=== PATIENT | female | born 1975 | race Caucasian/White ===

== ENCOUNTER 2017-03-06 16:00 | Observation (INO) | payer OTHER ==
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
== END 2017-03-06 19:35 | disposition home or self-care (01) ==
LOC: FLD 16:00
PROVIDERS: ADMIT Obstetrics & Gynecology; ATTEND Obstetrics & Gynecology
DX: O36.8130 Decreased fetal movements, third trimester, not applicable or unspecified (principal); O09.523 Supervision of elderly multigravida, third trimester; O09.213 Supervision of pregnancy with history of pre-term labor, third trimester; K90.0 Celiac disease; Z3A.39 39 weeks gestation of pregnancy
CPT/HCPCS: 59025; 76815; G0378

== ENCOUNTER 2017-03-08 05:39 | Inpatient (IN) | payer OTHER ==
--- NOTE | 2017-03-08 06:55 | OBPROG ---
OBG Progress Note Assessment/Plan: Assessment: cat 1 fhr contractions regular q3-4 minutes to tub to assist with the pain /-2 Plan:expectant management of labor 03/08/17 06:53 Subjective: Coping fair. feeling pain with each contractions. Feeling PAin in her back - SVE Dilation (cm): 4 Current Contraction Pattern: Regular FHR (bpm): 145 FHR Pattern Variability: Moderate FHR Category: 1 Membranes: Intact - Physical Exam General Appearance: WD/WN, alert, no apparent distress Respiratory: chest non-tender, lungs clear, normal breath sounds Cardiac/Chest: regular rate, rhythm Abdomen: normal bowel sounds Membranes: Intact Extremities: Eva's sign (negative bilaterally) DTR- Lower Extremities: Knee (R): 1+, Knee (L): 1+ (no clonus bilaterally) Skin: normal color, warm/dry Neuro/Psych: no motor/sensory deficits, alert, normal mood/affect, oriented x 3 ICD10 Worksheet Patient Problems: Problems Problem Status Onset Decreased movement Acute
[2017-03-08] MEDS ORDERED: TERBUTALINE SULFATE 1 MG/ML VIAL IV PRN (07:02)
[2017-03-08] MEDS ORDERED: LR 1,000 ML IV PRN (07:02)
[2017-03-08] MEDS ORDERED: IBUPROFEN 600 MG TAB PO PRN (07:02)
[2017-03-08] MEDS ORDERED: LIDOCAINE 1% 30 ML SDV SC PRN (07:02)
[2017-03-08] MEDS ORDERED: OLIVE OIL 118 ML BTL MISC PRN (07:02)
[2017-03-08] MEDS ORDERED: EPSOM SALT 454 GM TP PRN (07:02)
[2017-03-08] MEDS ORDERED: OXYTOCIN/RINGERS LACTATE 1,000 ML IV PRN (07:02)
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
[2017-03-08 07:54] LABS: % IMMATURE GRANULYOCYTES 0.5 % (0.0-1.1); ABSOLUTE IMMATURE GRANULOCYTES 0.06 10^3/uL (0.00-0.10); ADD DIFF? NO; ADD MORPH? NO; ADD SCAN? NO; ATYPICAL LYMPHOCYTE FLAG 10 (0-99); FRAGMENT RBC FLAG 0 (0-99); HEMATOCRIT 37.2 % (38.0-47.0); HEMOGLOBIN 13.1 g/dL (12.6-16.3); LEFT SHIFT FLG 0 (0-99); LIPEMIA HEMOLYSIS FLAG 90 (0-99); MEAN CELL HEMOGLOBIN 32.6 pg (27.9-34.1); MEAN CELL HEMOGLOBIN CONCENTR. 35.2 g/dL (32.4-36.7); MEAN CELL VOLUME 92.5 fL (81.5-99.8); PLATELET CLUMPS FLAG 20 (0-99); PLATELET COUNT 122 10^3/uL (150-400); RED BLOOD CELL COUNT 4.02 10^6/uL (4.18-5.33); RED CELL DISTRIBUTION WIDTH 12.3 % (11.5-15.2)
[2017-03-08] MEDS ORDERED: BUPIVACAINE 0.25% 30 ML SDV ONE (08:59)
[2017-03-08] MEDS ORDERED: fentaNYL 2MCG/ML/BUP 0.1% RTU 100 ML BAG EP ONE (08:59)
[2017-03-08] MEDS ORDERED: PHENYLEPHRINE HCL 100 MCG/ML SYR ONE (08:59)
[2017-03-08] MEDS ORDERED: fentaNYL 100 MCG/2 ML INJ ONE (09:00)
--- NOTE | 2017-03-08 09:15 | OBPROG ---
OBG Progress Note Assessment/Plan: Assessment: 41 y/o @ 39 5/7 wks in active labor Plan: Attempt an epidural - anesthesiology notified FHTs - Cat I tracing SROM- clear, blood tinged Anticipate 03/08/17 09:12 Subjective: Pt is on toilet and noticed leakage of fluid, pain with ctx's. Requesting an epidural at this time. Objective: 03/08/17 07:30 Patient ABO/Rh B POSITIVE 03/08/17 07:30 - SVE Dilation (cm): 9 Effacement (%): 100 Station: 0 Current Contraction Pattern: Regular FHR (bpm): 130 FHR Pattern Variability: Moderate FHR Category: 1 Membranes: SROM Amniotic Fluid Color: Clear, Blood Tinged ICD10 Worksheet Patient Problems: Problems Problem Status Onset Active labor at term Acute
--- NOTE | 2017-03-08 10:19 | OBPROG ---
OBG Progress Note Assessment/Plan: Assessment: 41 y/o @ 39 5/7 wks in active labor Plan: s/p epidural FHTs - Cat I tracing AROM forebag and thin mec Will start pushing 03/08/17 10:18 Subjective: Pt is comfortable, s/p epidural. Objective: 03/08/17 07:30 Patient ABO/Rh B POSITIVE 03/08/17 07:30 - SVE Dilation (cm): 10 Effacement (%): 100 Station: +1 Current Contraction Pattern: Regular FHR (bpm): 130 FHR Pattern Variability: Moderate FHR Category: 1 Membranes: AROM Amniotic Fluid Color: Bloody, Meconium Stained-Light ICD10 Worksheet Patient Problems: Problems Problem Status Onset Active labor at term Acute
[2017-03-08 11:05] LABS: BASE EXCESS CORD -7.9 mEq/L (-13.6--3.2); CORD BLOOD PCO2 65.4 mmHg (37-60); PH ARTERIAL CORD BLOOD 7.16 (7.10-7.37)
[2017-03-08 11:09] LABS: PH VENOUS CORD BLOOD 7.24 (7.20-7.42)
[2017-03-08] MEDS ORDERED: HYDROCORTISONE 0.5% CREAM TP PRN (11:13)
[2017-03-08] MEDS ORDERED: SIMETHICONE 80 MG TAB CHEW PO PRN (11:13)
--- NOTE | 2017-03-08 11:16 | OBPROC ---
- Labor and Delivery Onset of Contractions Date: 03/08/17 Onset of Contractions Time: 05:00 Onset of Contractions Type: Spontaneous Rupture of Membranes Date: 03/08/17 Rupture of Membranes Time: 09:00 Rupture of Membranes Type: Spontaneous (AROM of forebag) Amniotic Fluid Color: Meconium Stained-Light Placenta Delivery Date: 03/08/17 Placenta Delivery Time: 10:55 Episiotomy/Laceration: 2nd Degree Repair: 3-0, Vicryl EBL: 300 cc Complications: Nuchal Cord (Tight-slipped over shoulders and delivered through) Cord Gases: Cord Gases Cord Blood PCO2 65.4 mmHg (37-60) H 03/08/17 10:50 Cord Base Excess -7.9 mEq/L (-13.6--3.2) 03/08/17 10:50 Cord ABG pH 7.16 (7.10-7.37) 03/08/17 10:50 Cord VBG pH 7.24 (7.20-7.42) 03/08/17 10:50 - Medications Labor Augmentation/Induction Meds Used: None Anesthesia: Epidural - [place] Info Infant A Delivery Date: 03/08/17 Delivery Time: 10:50 Sex of Infant: Male ("Luke") Score (1 Min): 2 Score (5 Min): 5 Score (10 Min): 9
[2017-03-08] MEDS ORDERED: PHENYLEPHRINE HCL 100 MCG/ML SYR IVP PRN (11:21)
[2017-03-08] MEDS ORDERED: ONDANSETRON 4 MG/2 ML VIAL IVP PRN (11:21)
--- NOTE | 2017-03-08 11:23 | POSTANESTH ---
Post Anesthetic Evaluation Cardiovascular Status: Normal, Stable Respiratory Status: Normal, Stable, Similar to Pre-op Cond. Level of Consciousness/Mental Status: Can Participate in Eval, Alert and Oriented (Tolerated CSE well, stable, comfortable.) Pain Control: Adequate, Prn Tx Ordered Nausea/Vomiting Control: Adequate, Prn Tx Ordered Complications Possibly Related to Anesthesia: None Noted
--- NOTE | 2017-03-08 11:27 | PREANESOB ---
Obstetric Pre-Anesthesia Info - General Info Proposed Procedure: Labor and delivery : 2 Para: 1 WBD: 39 - Info Status: Full Term Monitors: External FHR Baseline (bpm): 140 FHR Pattern: Reassuring - Labor Status Cervical Dilation per last OB SVE: 9 Station per last OB SVE: +1 Rupture of Membranes Time: 09:00 Amniotic Fluid Color: Bloody, Meconium Stained-Light Indications for Labor Analgesia: Pain Control Labor Epidural: Proposed Anesthesia ROS: Celiac disease. S/P ankle and finger surgery. Allergies/Adverse Reactions: Allergy/AdvReac Type Severity Reaction Status Date / Time venom-honey bee Allergy Severe FACE Verified 11/14/12 13:25 SWELLING strawberry Allergy Mild RASH WHEN Verified 11/14/12 13:25 OVER EATS THEM Home Medications: Medication Instructions Recorded No Medications [NO HOME 0 ea [facility] [place] MEDICATIONS] 1 tab PO DAILY 03/08/17 Visit Medications: Generic Name Dose Route Start Last Admin Trade Name Freq PRN Reason Stop Dose Admin Hydrocodone Bitart/Acetaminophen 1 - 2 tab 03/08/17 11:13 [place] 5/325 PO 03/18/17 11:12 Q4HRS PRN Pain, Moderate Diphenhydramine HCl 25 - 50 mg 03/08/17 11:21 Benadryl Injection IVP 09/04/17 11:20 Q6HRS PRN Itching Docusate Sodium 100 mg 03/08/17 11:13 Colace PO 09/04/17 11:12 BID PRN Constipation Hydrocortisone 1 talya 03/08/17 11:13 Hydrocortisone 0.5% TP 09/04/17 11:12 QID PRN Hemorrhoids Lactated Ringer's 1,000 mls @ 0 mls/hr 03/08/17 07:02 Lr IV 09/04/17 07:01 PRN PRN SEE PROTOCOL CONDITIONS Protocol Per Protocol Oxytocin/Lactated Ringer's 1,000 mls @ 150 mls/hr 03/08/17 07:02 Pitocin 20 Units/Lr (Premix) IV PRN PRN Post- bleeding Fentanyl/Bupivacaine HCl 100 mls @ 0 mls/hr 03/08/17 11:30 Fentanyl/Bupivacaine/Ns 2 Mcg/Ml 0.1% (Premix EP 03/18/17 11:29 CONT MAGGIE Protocol As Directed Lactated Ringer's 500 mls @ 0 mls/hr 03/08/17 11:30 Lr IV 09/04/17 11:29 CONT MAGGIE As Directed Ibuprofen 600 mg 03/08/17 07:02 Motrin PO 09/04/17 07:01 Q6HRS PRN post , inflammation Ibuprofen 600 mg 03/08/17 11:13 Motrin PO 09/04/17 11:12 Q6HRS PRN Pain, Inflammatory Lidocaine HCl 30 ml 03/08/17 07:02 Lidocaine Hcl 1% SC 09/04/17 07:01 ONCE PRN Episiotomy Magnesium Sulfate 454 gm 03/08/17 07:02 Epsom Salt TP 09/04/17 07:01 PRN PRN perineal discomfort [place] Oil 118 ml 03/08/17 07:02 Sweet Oil MISC 09/04/17 07:01 ONCE PRN preneal massage Ondansetron HCl 4 mg 03/08/17 11:21 Zofran IVP 09/04/17 11:20 Q4HRS PRN Nausea/Vomiting, Can't Take PO Phenylephrine HCl 100 mcg 03/08/17 11:21 Kulwant-Synephrine IVP 09/04/17 11:20 .Q2M PRN Hypotension Simethicone 80 mg 03/08/17 11:13 Mylicon PO 09/04/17 11:12 ACHS PRN Gas Terbutaline Sulfate 0.25 mg 03/08/17 07:02 Brethine IV 09/04/17 07:01 ONCE PRN Tachysystole Discontinued Medications Generic Name Dose Route Start Last Admin Trade Name Deionq PRN Reason Stop Dose Admin Bupivacaine HCl Confirm 03/08/17 08:59 Sensorcaine 0.25% Sdv Administered 03/08/17 09:00 Dose 30 ml .ROUTE .STK-MED ONE Fentanyl Confirm 03/08/17 09:00 Sublimaze Administered 03/08/17 09:01 Dose 100 mcg .ROUTE .STK-MED ONE Fentanyl/Bupivacaine HCl Confirm 03/08/17 08:59 Fentanyl/Bupivacaine/Ns 2 Mcg/Ml 0.1% (Premix Administered 03/08/17 09:00 Dose 100 ml EP .STK-MED ONE Phenylephrine HCl Confirm 03/08/17 08:59 Kulwant-Synephrine Administered 03/08/17 09:00 Dose 1,000 mcg .ROUTE .STK-MED ONE - Anesthesia History Response to Local Anesthetics: Normal Anesthesia & Operative History: No Prior Problems - Social History Substance Use/Abuse: Denies - Focused Exam Blood Pressure: 117/74 Heart Rate: 87 Respiratory Rate: 18 Height/Weight (Nursing): Height 162.56 cm Weight 77.111 kg Physical Exam: Within normal limits. ASA Status: II Labs: 03/08/17 07:30 Patient ABO/Rh B POSITIVE 03/08/17 07:30 - Plan Anesthetic Plan: CSE Consent Signed and on Chart: Yes Patient/Guardian Understands and Agrees to Plan: Yes General Comments: Written consent signed after epidural due to patient discomfort.
[2017-03-08] MEDS ORDERED: LR 500 ML IV SCH (11:30)
[2017-03-08] MEDS ORDERED: fentaNYL 2MCG/ML/BUP 0.1% RTU 100 ML EP SCH (11:30)
[2017-03-08] MEDS: IBUPROFEN 600 MG TAB PO PRN ×2 (12:20→18:58)
[2017-03-08] MEDS: HYDROCODONE/APAP 5/325 TAB PO PRN ×2 (16:09→23:21)
[2017-03-08 18:51] VITALS: RESP 16
[2017-03-08] MEDS: DOCUSATE SODIUM 100 MG CAP PO PRN (22:09)
[2017-03-09] MEDS: IBUPROFEN 600 MG TAB PO PRN ×4 (00:58→22:07)
[2017-03-09] MEDS: HYDROCODONE/APAP 5/325 TAB PO PRN ×5 (03:52→23:53)
--- NOTE | 2017-03-09 11:05 | OBPROG ---
OBG Progress Note Assessment/Plan: Assessment: 41 y/o PPD #1 s/p doing well. Plan: Routine PPC, support. Epsom salt baths etc and D/c home tomorrow. 03/09/17 11:02 Subjective: Pt is doing well. She is having significant cramping taking Ibuprofen and Dovray occasionally. She is ambulating and voiding well and has min lochia. Breast feeding is going well and baby is doing well. Objective: 03/08/17 07:30 Patient ABO/Rh B POSITIVE 03/08/17 07:30 Temp Pulse Resp BP Pulse Ox 36.6 C 58 L 16 102/74 93 03/08/17 20:00 03/08/17 20:00 03/08/17 20:00 03/08/17 20:00 03/08/17 20:00 Uterine Position/Fundal Height: Umbilicus -2 Uterine Tone: Firm - Physical Exam General Appearance: WD/WN, alert, no apparent distress Neck: non-tender, full range of motion, supple Respiratory: chest non-tender, lungs clear, normal breath sounds Cardiac/Chest: regular rate, rhythm Abdomen: normal bowel sounds Extremities: swelling (no), Eva's sign (neg) ICD10 Worksheet Patient Problems: Problems Problem Status Onset Active labor at term Acute
[2017-03-09] MEDS: DOCUSATE SODIUM 100 MG CAP PO PRN ×2 (13:29→19:44)
[2017-03-09 20:00] VITALS: O2SAT 96
[2017-03-10] MEDS: DOCUSATE SODIUM 100 MG CAP PO PRN (09:37)
[2017-03-10] MEDS: IBUPROFEN 600 MG TAB PO PRN (09:37)
[2017-03-10 10:47] VITALS: PULSE 52; TEMP 98.2
[2017-03-10 11:01] VITALS: BP 97/59
--- NOTE | 2017-03-10 11:16 | SOAPPROG ---
SOAP Progress Note Assessment/Plan: Assessment: PPD 2 s/p Plan: D/C home 03/10/17 11:14 Subjective: Pt doing well and desires D/C. Bld has decreased. urinating fine. Baby is latching well. Mod cramps - ok with ibu. Objective: Vital Signs Temp Pulse Resp BP Pulse Ox 36.8 C 52 L 16 97/59 L 96 03/10/17 08:00 03/10/17 08:00 03/10/17 08:00 03/10/17 10:15 03/10/17 08:00 Laboratory Results 03/08/17 07:30 03/09/17 03/10/17 03/11/17 05:59 05:59 05:59 Output Total 300 Balance -300 Physical Exam - Physical Exam General Appearance: WD/WN Abdomen: non-tender, soft, other (FF at umb -1) Pelvic Exam: vaginal bleeding (normal lochia) Extremities: non-tender, pedal edema (minimal) Neuro/Psych: normal mood/affect ICD10 Worksheet Patient Problems: Problems Problem Status Onset (spontaneous vaginal delivery) Acute
== END 2017-03-10 13:30 | disposition home or self-care (01) | DRG 775 ==
LOC: FLD 05:39 → FOB 19:00
PROVIDERS: ADMIT Advanced Practice Midwife; ATTEND Advanced Practice Midwife
DX: O69.2XX0 Labor and delivery complicated by other cord entanglement, with compression, not applicable or unspecified (principal); Z37.0 Single live birth; O70.1 Second degree perineal laceration during delivery; Z3A.39 39 weeks gestation of pregnancy
CPT/HCPCS: J2370; J2590; J3010

== ENCOUNTER 2017-08-29 00:53 | Emergency (ER) | payer OTHER ==
[2017-08-29 01:02] VITALS: O2SAT 95
[2017-08-29] MEDS ORDERED: NS 1,000 ML IV ONE ×2 (01:19→02:27)
--- NOTE | 2017-08-29 01:24 | EDPHY ---
H & P Stated Complaint: Poss Allergic Reaction Time Seen by Provider: 08/29/17 01:08 HPI/ROS: CHIEF COMPLAINT: Possible allergic reaction HISTORY OF PRESENT ILLNESS: Patient is a 41-year-old female who comes to the emergency department complaining of itching in her legs. She states that she woke up because her baby was crying and felt like the left side of her body was warm. She went to the bathroom and had diarrhea which is likely from taking a dose of MiraLax before going to bed. She was testing this because it was prescribed for her daughter. She does have a history of celiac disease. No blood in her stool. No nausea vomiting. She states that the warmness on the left side of her body resolved but she then developed pain in both wrists and thought that her hands were swollen and she she decided to remove her rings. She called her friend who came over and brought her to the emergency department. Friend states that she did not have any slurred speech or droopy face. The patient denies any weakness. She has been ambulatory. She states that no all the other symptoms have resolved but she has itching in both legs. No visible rash. No shortness of breath. No headache. No fever or recent illness. She does have a history of anxiety but denies panic attacks. REVIEW OF SYSTEMS: Constitutional: denies: chills, fever, recent illness, recent injury EENTM: denies: blurred vision, double vision, nose congestion Respiratory: denies: cough, shortness of breath Cardiac: denies: chest pain, irregular heart rate, lightheadedness, palpitations Gastrointestinal/Abdominal: denies: abdominal pain, diarrhea, nausea, vomiting, blood streaked stools Genitourinary: denies: dysuria, frequency, hematuria, pain Musculoskeletal: denies: joint pain, muscle pain Skin: denies: lesions, rash, jaundice, bruising Neurological: See HPI denies: headache, dizziness, weakness Hematologic/Lymphatic: denies: blood clots, easy bleeding, easy bruising Immunologic/allergic: denies: HIV/AIDS, transplant EXAM: GENERAL: Well-appearing, well-nourished and in no acute distress. HEAD: Atraumatic, normocephalic. EYES: Pupils equal round and reactive to light, extraocular movements intact, sclera anicteric, conjunctiva are normal. ENT: TMs normal, nares patent, oropharynx clear without exudates. Moist mucous membranes. NECK: Normal range of motion, supple without lymphadenopathy or JVD. LUNGS: Breath sounds clear to auscultation bilaterally and equal. No wheezes rales or rhonchi. HEART: Regular rate and rhythm without murmurs, rubs or gallops. ABDOMEN: Soft, nontender, normoactive bowel sounds. No guarding, no rebound. No masses appreciated. BACK: No CVA tenderness, no spinal tenderness, step-offs or deformities EXTREMITIES: Normal range of motion, no pitting or edema. No clubbing or cyanosis. NEUROLOGICAL: Cranial nerves II through XII grossly intact. Normal speech, normal gait. 5/5 strength, normal movement in all extremities, normal sensation PSYCH: Very anxious, rapid speech SKIN: Warm, dry, normal turgor, no visible rashes or lesions. Source: Patient Exam Limitations: No limitations - Personal History LMP (Females 10-55): Over 28 Days Ago Current Tetanus/Diphtheria Vaccine: Yes - Medical/Surgical History Hx Asthma: No Hx Chronic Respiratory Disease: No Hx Diabetes: No Hx Cardiac Disease: No Hx Renal Disease: No Hx Cirrhosis: No Hx Alcoholism: No Hx HIV/AIDS: No Hx Splenectomy or Spleen Trauma: No Other PMH: anxiety - Family History Significant Family History: No pertinent family hx - Social History Smoking Status: Former smoker Alcohol Use: Sober Drug Use: None Constitutional: Initial Vital Signs Temperature (C) 36.4 C 08/29/17 00:58 Heart Rate 86 08/29/17 00:58 Respiratory Rate 22 H 08/29/17 00:58 Blood Pressure 149/112 H 08/29/17 00:58 O2 Sat (%) 95 08/29/17 00:58 O2 Delivery Mode Room Air Allergies/Adverse Reactions: venom-honey bee Allergy (Severe, Verified 08/29/17 00:57) FACE SWELLING strawberry Allergy (Mild, Verified 08/29/17 00:57) RASH WHEN OVER EATS THEM Home Medications: Medication Instructions Recorded 1 tab PO DAILY 03/08/17 Docusate Sodium [Colace 100 MG (*)] 100 mg PO BID PRN #0 cap 03/10/17 Ibuprofen [Motrin (*)] 600 mg PO Q6HRS PRN #0 tab 03/10/17 Medical Decision Making ED Course/Re-evaluation: The patient has a completely normal exam other than anxiety and rapid speech. No rash. No visible swelling. Normal strength and range of motion. No neurologic deficits. She states that she feels dehydrated and that her mouth the sticky. This may be secondary to the MiraLax she took this evening. I will hydrate her and check her electrolytes. Will give her small dose of Benadryl for the itching and anxiety and observed. 2:25 a.m. the patient is doing much better. She feels tired after Benadryl. We discussed her lab results which are reassuring. She is currently asymptomatic other than having a dry mouth. We will continue to hydrate. 3:10 a.m. the patient is feeling completely better and is eager to go home. Differential Diagnosis: Partial list of the Differential diagnosis considered include but were not limited to; anxiety, allergic reaction and although unlikely based on the history and physical exam, I also considered infection, CVA, acute coronary disease, PE. I discussed these differential diagnoses and the plan with the patient as well as the usual and expected course. The patient understands that the diagnosis is provisional and that in medicine we are not always correct and that further workup is often warranted. Usual and customary warnings were given. All of the patient's questions were answered. The patient was instructed to return to the emergency department should the symptoms at all worsen or return, otherwise to followup with the physician as we discussed. - Data Points Laboratory Results: Laboratory Results 08/29/17 01:50 08/29/17 01:50 Medications Given: Discontinued Medications Diphenhydramine HCl (Benadryl Injection) 25 mg IVP EDNOW ONE Stop: 08/29/17 01:20 Last Admin: 08/29/17 01:34 Dose: 25 mg Sodium Chloride (Ns) 1,000 mls @ 0 mls/hr IV ONCE ONE; Wide Open PRN Reason: Protocol Stop: 08/29/17 01:20 Last Admin: 08/29/17 01:33 Dose: 1,000 mls Sodium Chloride (Ns) 1,000 mls @ 0 mls/hr IV EDNOW ONE; Wide Open PRN Reason: Protocol Stop: 08/29/17 02:28 Last Admin: 08/29/17 02:39 Dose: 1,000 mls Departure - Departure Disposition: Home, Routine, Self-Care Clinical Impression: Dehydration Condition: Fair Instructions: Dehydration (ED) Referrals: NONE *PRIMARY CARE P,. [Primary Care Provider] - As per Instructions Wade Harden MD [Medical Doctor] - As per Instructions
[2017-08-29 02:14] LABS: PLATELET COUNT 185 10^3/uL (150-400)
[2017-08-29 03:24] VITALS: BP 98/61; PULSE 65; RESP 18; TEMP 97.7
== END 2017-08-29 03:28 | disposition home or self-care (01) ==
DX: E86.0 Dehydration (principal); E86.9 Volume depletion, unspecified; Z87.891 Personal history of nicotine dependence
CPT/HCPCS: 96374; J1200

== ENCOUNTER → 2018-10-11 | Outpatient (CLI) | payer OTHER | LOC: FIMAGING 08:01 | PROVIDERS: ATTEND Family Medicine | DX: R10.11 Right upper quadrant pain (principal) ==